=== PATIENT | female | born 1945 | race Caucasian/White ===

== ENCOUNTER → 2019-06-20 15:38 | Outpatient (CLI) | payer MEDICARE, OTHER, SELFPAY ==
--- NOTE | ~2019-06-20 | MM_ITS ---
EXAMINATION: MM screening jyoti BI w rhys HISTORY: Screening mammogram, family history of breast cancer in her sister. TECHNIQUE: Craniocaudal and mediolateral oblique 3-D tomosynthesis images were obtained and synthetic 2-D images were generated. CAD analysis was submitted and interpreted. COMPARISON: 03/19/2018, 10/11/2016, 08/26/2015 BREAST PARENCHYMAL COMPOSITION: There are scattered areas of fibroglandular density. FINDINGS: Scattered benign-appearing calcifications are present. There is no evidence of suspicious m ass, calcification, or architectural distortion to suggest malignancy in either breast. There has bee n no suspicious interval change. IMPRESSION: 1. No mammographic evidence of malignancy. 2. Recommend routine screening mammography in one year. BI-RADS Category 2: Benign finding(s). Reviewed, dictated and finalized at location A. E SPECIALIST
== END ==
PROVIDERS: PCP Internal Medicine; Visit Provider Internal Medicine
DX: Z12.31 Encounter for screening mammogram for malignant neoplasm of breast (principal)
CPT/HCPCS: 77063; 77067

== ENCOUNTER 2020-09-23 12:36 | Emergency (ER) | payer MEDICARE, OTHER, SELFPAY ==
--- NOTE | ~2020-09-23 | XR_ITS ---
EXAMINATION: XR shoulder LT min 2V DATE: 09/23/2020 13:01 INDICATION: Left shoulder pain. Fall. TECHNIQUE: 3 views of left shoulder were obtained. COMPARISON: None. FINDINGS: There is a comminuted fracture of proximal left humerus with displaced fracture components of the greater tuberosity and surgical neck. There may be involvement of the articular surface. The m ain distal fracture fragment demonstrates 1.4 cm anterior displacement and impaction. There is mild o steoarthritis of glenohumeral joint and severe osteoarthritis of acromioclavicular joint. IMPRESSION: 1. Comminuted three-part fracture of proximal left humerus. Reviewed, dictated and finalized at location B.
[2020-09-23 12:35] VITALS: BP 89/42; PULSE 55; RESP 18; TEMP 36.9; O2SAT 100
[2020-09-23 13:30] VITALS: BP 121/55; PULSE 58; RESP 16; O2SAT 98
--- NOTE | 2020-09-23 14:15 | ED.EXTPRO ---
HPI - Extremity Problem General Chief complaint: Fall Stated complaint: FALL, SBP 90 Time Seen by Provider: 09/23/20 12:51 Source: patient Mode of arrival: EMS Limitations: no limitations History of Present Illness HPI Narrative: 75-year-old female Basically healthy Patient reports that she was at a bowling alley for a banquet and somewhat had set a bag with a bowling ball and it next to her chair unbeknownst to her When she got up she tripped over it and fell and landed on her left shoulder with resulting pain and immobility She did not hurt anything else, no loss of consciousness, no neck pain, no injury and there was no dizziness or weakness which had prompted her to fall She can move all the fingers in the affected arm and reports no numbness Related Data Allergies Allergy/AdvReac Type Severity Reaction Status Date / Time No Known Allergies Allergy Verified 09/23/20 13:35 Review of Systems Review of Systems: All systems reviewed & are unremarkable except as noted in HPI and below Constitutional: Constitutional: Reports no additional constitutional complaints, Denies chills, Denies fever(s), Denies headache(s) and Denies weakness Eyes: Eyes: Reports no additional eye complaints and Denies change in vision ENT: Denies headache(s) Cardiovascular: Cardiovascular: Denies chest pain and Denies dyspnea Respiratory: Respiratory: Denies dyspnea Genitourinary: Genitourinary: Denies urinary frequency Musculoskeletal: Musculoskeletal: Denies back pain, Denies deformity, Reports arthralgias, Reports joint swelling and Denies numbness Integumentary/Breasts: Skin/Breast: Denies rash and Denies wounds Neurologic: Denies headache(s), Denies focal weakness and Denies numbness Exam Const: General: cooperative, no acute distress and alert Orientation/consciousness: patient oriented x3 (alert) HENMT: Head: normal to inspection, normocephalic, atraumatic, no contusions and no hematomas Ears: external ears normal General nose exam: no epistaxis Eyes: Conjunctivae: conjunctivae normal EOM: EOMs intact bilaterally Neck: Neck: normal visual inspection, supple and no JVD Other: Nontender, no pain with range of motion Resp: Effort & Inspection: normal respiratory effort and not labored Auscultation: other (BS =) Cardio: Rate: regular rate Rhythm: regular rhythm Skin: General skin exam: normal color and no rashes or lesions noted Neuro: General: patient oriented x3 (alert) and moves all extremities Speech: normal speech Extrem: Other: Left shoulder appears slightly swollen but there is no squared off deformity to suggest a dislocation, there is tenderness over the proximal humerus which is actually more pronounced posteriorly, any attempted range of motion hurts, elbow is nontender and there is normal supination and pronation and pulses and sensation are normal in the wrist and hand respectively Psych: Affect: normal affect Course Vital Signs Vital signs: Vital Signs Temperature 36.9 C 09/23/20 12:35 Pulse Rate 55 L 09/23/20 12:35 Respiratory Rate 18 09/23/20 12:35 Blood Pressure 89/42 L 09/23/20 12:35 Pulse Oximetry 100 09/23/20 12:35 Temperature 36.9 C 09/23/20 12:35 Pulse Rate 55 L 09/23/20 12:35 Respiratory Rate 18 09/23/20 12:35 Blood Pressure 89/42 L 09/23/20 12:35 Pulse Oximetry 100 09/23/20 12:35 MDM - Extremity (Nontraumatic) Imaging Data Radiologist's impression: ITS Impressions Shoulder X-Ray 09/23/20 13:04 IMPRESSION: 1. Comminuted three-part fracture of proximal left humerus. Discharge Plan Discharge Clinical Impression: Fracture of proximal end of left humerus Patient Disposition: Home, Self-Care Condition: Stable Instructions: Arm Fracture in Adults (ED), Shoulder Immobilizer (ED) Additional Instructions: Chances are that you may need surgery such as a partial shoulder replacement to fix this Prescriptions: New
[2020-09-23] MEDS: MORPHINE SULFATE (*CRX) 4 MG/ML INJ IV PUSH (14:17)
[2020-09-23 14:30] VITALS: BP 139/58; PULSE 62; RESP 16; O2SAT 97
[2020-09-23 15:50] VITALS: BP 149/62; PULSE 70; RESP 18; O2SAT 97
== END 2020-09-23 15:50 | disposition home or self-care (01) ==
PROVIDERS: Emergency Provider Emergency Medicine; PCP Internal Medicine
DX: S42.202A Unspecified fracture of upper end of left humerus, initial encounter for closed fracture (principal); W18.09XA Striking against other object with subsequent fall, initial encounter
CPT/HCPCS: 73030; 96374; 99284; J2270

== ENCOUNTER → 2022-01-17 15:09 | Outpatient (CLI) | payer MEDICARE, OTHER, SELFPAY ==
--- NOTE | ~2022-01-17 | MM_ITS ---
EXAMINATION: MM screening jyoti BI w rhys HISTORY: Screening mammogram, family history of breast cancer in her sister. TECHNIQUE: Craniocaudal and mediolateral oblique 3-D tomosynthesis images were obtained and synthetic 2-D images were generated. CAD analysis was submitted and interpreted. COMPARISON: 06/20/2019, 03/19/2018, 10/11/2016 BREAST PARENCHYMAL COMPOSITION: There are scattered areas of fibroglandular density. FINDINGS: There is no suspicious mass, calcification, or architectural distortion to suggest malignan cy in either breast. There has been no suspicious interval change. IMPRESSION: 1. No mammographic evidence of malignancy. 2. Recommend routine screening mammography in one year. BI-RADS Category 1: Negative Reviewed, dictated and finalized at location A.
== END ==
PROVIDERS: PCP Internal Medicine; Visit Provider Internal Medicine
DX: Z12.31 Encounter for screening mammogram for malignant neoplasm of breast (principal)
CPT/HCPCS: 77063; 77067

== ENCOUNTER → 2023-04-17 10:17 | Outpatient (CLI) | payer MEDICARE, OTHER, SELFPAY ==
--- NOTE | ~2023-04-17 | MM_ITS ---
EXAMINATION: MM screening jyoti BI w rhys HISTORY: Screening mammogram TECHNIQUE: Craniocaudal and mediolateral oblique 3-D tomosynthesis images were obtained and synthetic 2-D images were generated. CAD analysis was submitted and interpreted. COMPARISON: 01/17/2022, 06/20/2019 bilateral screening mammogram examinations BREAST PARENCHYMAL COMPOSITION: There are scattered areas of fibroglandular density. FINDINGS: There is no evidence of suspicious mass, calcification, or architectural distortion to sugg est malignancy in either breast. There has been no suspicious interval change. IMPRESSION: 1. No mammographic evidence of malignancy. 2. Recommend routine screening mammography in one year. BI-RADS Category 1: Negative Reviewed, dictated and finalized at location A. PAINTER
== END ==
PROVIDERS: PCP Internal Medicine; Visit Provider Internal Medicine
DX: Z12.31 Encounter for screening mammogram for malignant neoplasm of breast (principal)
CPT/HCPCS: 77063; 77067

== ENCOUNTER 2024-07-16 12:37 | Outpatient (CLI) | payer MEDICARE, OTHER, SELFPAY ==
--- NOTE | ~2024-07-16 | MM_ITS ---
EXAMINATION: MM screening jyoti BI w rhys HISTORY: Screening TECHNIQUE: Craniocaudal and mediolateral oblique 3-D tomosynthesis images were obtained and synthetic 2-D images were generated. CAD analysis was submitted and interpreted. COMPARISON: Comparison to multiple prior studies sequentially, with oldest reviewed study dated 08/25. BREAST PARENCHYMAL COMPOSITION: Not dense: There are scattered areas of fibroglandular density. FINDINGS: There is no evidence of suspicious mass, calcification, or architectural distortion to sugg est malignancy in either breast. There has been no suspicious interval change. IMPRESSION: 1. No mammographic evidence of malignancy. 2. Recommend routine screening mammography in one year. BI-RADS Category 1: Negative Reviewed, dictated and finalized at location B.
== END 2024-07-16 12:38 | disposition home or self-care (01) ==
LOC: MICIMG 12:39
PROVIDERS: PCP Internal Medicine; Visit Provider Internal Medicine
DX: Z12.31 Encounter for screening mammogram for malignant neoplasm of breast (principal)
CPT/HCPCS: 77063; 77067